=== PATIENT | female | born 1995 | race Caucasian/White ===

== ENCOUNTER 2017-01-04 22:23 | Emergency (ER) | payer BC ==
[2017-01-05 00:13] LABS: ABSOLUTE EOSINOPHILS # (AUTO) 0.1 10^3/uL (0.0-0.6); ABSOLUTE LYMPHOCYTES (AUTO) 2.7 10^3/uL (0.5-4.7); ABSOLUTE MONOCYTES (AUTO) 0.6 10^3/uL (0.1-1.4); ABSOLUTE NEUT (AUTO) 7.2 10^3/uL (1.7-8.2); BASOPHILS % (AUTO) 0.3 % (0-2); HEMATOCRIT 40.1 % (36.0-47.0); HEMOGLOBIN 13.7 g/dL (12.0-15.5); LYMPHOCYTES % (AUTO) 25.4 % (13-45); MEAN CORPUSCULAR HEMOGLOBIN 29.8 pg (27.0-33.4); MEAN CORPUSCULAR HGB CONC 34.3 g/dL (32.0-36.0); MEAN CORPUSCULAR VOLUME 87 fl (80-97); MONOCYTES % (AUTO) 5.8 % (3-13); SEGMENTED NEUTROPHILS % (AUTO) 67.5 % (42-78); WHITE BLOOD COUNT 10.7 10^3/uL (4.0-10.5)
[2017-01-05 00:30] LABS: ALANINE AMINOTRANSFERASE 33 U/L (9-52); ALBUMIN 4.6 g/dL (3.5-5.0); ALKALINE PHOSPHATASE 98 U/L (38-126); ANION GAP 14 (5-19); ASPARTATE AMINO TRANSFERASE 23 U/L (14-36); BILIRUBIN,DIRECT 0.2 mg/dL (0.0-0.4); BILIRUBIN,TOTAL 0.6 mg/dL (0.2-1.3); BLOOD UREA NITROGEN 10 mg/dL (7-20); CARBON DIOXIDE 24 mmol/L (22-30); CHLORIDE 104 mmol/L (98-107); CREATININE RESULT 0.68 mg/dL (0.52-1.25); GLUCOSE 98 mg/dL (75-110); POTASSIUM 3.8 mmol/L (3.6-5.0); SODIUM 141.9 mmol/L (137-145); TOTAL PROTEIN 8.2 g/dL (6.3-8.2)
[2017-01-05] MEDS ORDERED: DEXAMETHASONE SOD PHOS INJ 10 MG/1 ML VIAL IM ONE (04:32)
[2017-01-05] MEDS ORDERED: PROCHLORPERAZINE EDISYLATE INJ 10 MG/2 ML VIAL IM ONE (04:32)
[2017-01-05] MEDS ORDERED: DIPHENHYDRAMINE HCL 50 MG/ML VIAL IM ONE (04:32)
[2017-01-05] MEDS ORDERED: KETOROLAC TROMETHAMINE 60 MG/2 ML SDV IM ONE (04:32)
--- NOTE | 2017-01-05 04:35 | ER Document Report ---
ED Headache - General Mode of Arrival: Ambulatory Information source: Patient TRAVEL OUTSIDE OF THE [place] IN LAST 30 DAYS: No - HPI Patient complains to provider of: Headache Associated symptoms: Other - See above <STEPHIE RICHARDS - Last Filed: 01/05/17 04:30> <SOLANGE GOMEZ - Last Filed: 01/05/17 06:11> - General Chief Complaint: Headache Stated Complaint: HEAD PAIN Time Seen by Provider: 01/05/17 04:17 Notes: Patient is a 21 year old female, with a past medical history including migraines , who presents to the emergency department with her parents complaining of a headache. Patient states that she uses Imitrex when she starts migraines but after taking 1 100mg dose it was not helping and instead made her dizzy with tingling in her face and hands. Patient also reports having nausea which usually occurs with her migraines as well as abdominal pain, diarrhea, and lateral neck pain which are new. Patient reports having a cold starting last week with sore throat, runny nose and chills. Patient denies diaphoresis, blurry vision, burning with urination, and hematuria. (STEPHIE RICHARDS) - Related Data Allergies/Adverse Reactions: No Known Allergies Allergy (Verified 01/04/17 23:16) Past Medical History - General Information source: Patient - Social History Smoking Status: Unknown if Ever Smoked Family History: Reviewed & Not Pertinent Neurological Medical History: Reports: Hx Migraine Past Surgical History: Reports: Hx Orthopedic Surgery - L knee <STEPHIE RICHARDS - Last Filed: 01/05/17 04:30> Review of Systems - Review of Systems Constitutional: See HPI, Chills EENT: Throat pain. denies: Blurred vision Cardiovascular: See HPI, Dizziness Respiratory: No symptoms reported Gastrointestinal: See HPI, Abdominal pain, Diarrhea, Nausea Genitourinary: denies: Burning, Hematuria Female Genitourinary: No symptoms reported Musculoskeletal: See HPI, Neck pain Skin: No symptoms reported Hematologic/Lymphatic: No symptoms reported Neurological/Psychological: See HPI, Headaches, Tingling -: Yes All other systems reviewed and negative <STEPHIE RICHARDS - Last Filed: 01/05/17 04:30> Physical Exam <STEPHIE RICHARDS - Last Filed: 01/05/17 04:30> <SOLANGE GOMEZ - Last Filed: 01/05/17 06:11> - Vital signs Vitals: Temp Pulse BP Pulse Ox 98.1 F 64 109/76 96 01/04/17 23:18 01/04/17 23:18 01/04/17 23:18 01/04/17 23:18 - Notes Notes: GENERAL: Alert, interacts well. No acute distress. HEAD: Normocephalic, atraumatic. EYES: Pupils equal, round, and reactive to light. Extraocular movements intact. ENT: Oral mucosa moist, tongue midline. Clear fluid behind right TM. Small amount of post nasal drip. NECK: Full range of motion. Supple. Trachea midline. LUNGS: Clear to auscultation bilaterally, no wheezes, rales, or rhonchi. No respiratory distress. HEART: Regular rate and rhythm. No murmurs, gallops, or rubs. ABDOMEN: Soft, non-tender. Non-distended. Bowel sounds present in all 4 quadrants. EXTREMITIES: Moves all 4 extremities spontaneously. No cyanosis. NEUROLOGICAL: Alert and oriented x3. Normal speech. PSYCH: Normal affect, normal mood. SKIN: Warm, dry, normal turgor. No rashes or lesions noted. (STEPHIE RICHARDS) Course - Laboratory Result Diagrams: 01/04/17 23:40 01/04/17 23:40 <STEPHIE RICHARDS - Last Filed: 01/05/17 04:30> - Laboratory Result Diagrams: 01/04/17 23:40 01/04/17 23:40 <SOLANGE GOMEZ - Last Filed: 01/05/17 06:11> - Re-evaluation Re-evalutation: 01/05/17 04:42 Protocol as ordered by nurses shows slight leukocytosis of 10.7 otherwise unremarkable, chemistries negative, patient is not . There is nothing new about that migraine compared to her usual ones aside from some tingling in her fingers as she is becoming more and more uncomfortable. Patient will be treated with Toradol, Compazine, Benadryl as well as Decadron to prevent rebound headache. Patient does not want to wait after receiving medications to ensure that they help, she would simply like to leave after receiving treatment. Patient will be discharged to home, is recommended to follow-up with neurology as an outpatient. Patient will be returning to [place] in approximately 48 hours therefore she is recommended to follow-up with a neurologist there rather than establish care locally. 01/05/17 04:43 Patient also has mild viral upper respiratory symptoms, no evidence of meningitis. (SOLANGE GOMEZ) - Vital Signs Vital signs: Temp Pulse Resp BP Pulse Ox 98.1 F 62 16 116/59 L 99 01/04/17 23:18 01/05/17 04:18 01/05/17 04:18 01/05/17 04:18 01/05/17 04:18 - Laboratory Laboratory results interpreted by me: 01/04/17 23:40 WBC 10.7 H Discharge <STEPHIE RICHARDS - Last Filed: 01/05/17 04:30> <SOLANGE GOMEZ - Last Filed: 01/05/17 06:11> - Discharge Clinical Impression: Headache, migraine, intractable Qualifiers: Migraine type: without aura Status migrainosus presence: with status migrainosus Qualified Code(s): G43.011 - Migraine without aura, intractable, with status migrainosus Condition: Stable Disposition: HOME, SELF-CARE Additional Instructions: It is very important that she follow-up with a neurologist as an outpatient. You have continued to have migraines despite appropriate treatment. They may have other treatments that help to reduce your frequency of migraines. For your upper respiratory type symptoms please consider using nasal saline rinses such as a NetiPot or NeilMed Sinus Rinses. Forms: Return to School Scribe Attestation: 01/05/17 06:10 I personally performed the services described in the documentation, reviewed and edited the documentation which was dictated to the scribe in my presence, and it accurately records my words and actions. (SOLANGE GOMEZ) Scribe Documentation - Scribe Written by Larry:: larry Angel, 01/05/17, 0438 acting as scribe for :: Kashif <STEPHIE RICHARDS - Last Filed: 01/05/17 04:30>
[2017-01-05 05:04] VITALS: BP 116/59
== END 2017-01-05 05:04 | disposition home or self-care (01) ==
LOC: ER 22:23
DX: G43.011 Migraine without aura, intractable, with status migrainosus (principal); R20.2 Paresthesia of skin; R68.83 Chills (without fever); R19.7 Diarrhea, unspecified; R11.0 Nausea; M54.2 Cervicalgia
CPT/HCPCS: 99283; 96372; 36415; 84703; 85025; 80053; J1200; J1885; J0780; J1100